=== PATIENT | male | born 1985 | race Hispanic/Latino ===

== ENCOUNTER 2020-12-19 12:29 | Emergency (ER) | payer SELFPAY ==
[2020-12-19] MEDS ORDERED: diphenhydrAMINE 50 MG/ML VIAL ONE (12:54)
[2020-12-19] MEDS ORDERED: methylPREDNISolone Sod Succ/PF 125 MG/2 ML VIAL ONE (12:54)
== END 2020-12-19 14:05 | disposition home or self-care (01) ==
LOC: BURERS 12:29
DX: T63.441A Toxic effect of venom of bees, accidental (unintentional), initial encounter (principal); F17.200 Nicotine dependence, unspecified, uncomplicated
CPT/HCPCS: 96374; 96375; J1200; J2930